=== PATIENT | male | born 1950 | race Caucasian/White ===

== ENCOUNTER 2016-08-21 05:28 | Day surgery (SDC) | payer BC, MEDICARE ==
--- NOTE | ~2016-08-21 | EGD ---
EGD REPORT [facility] [address] [address] NAME: REYES BYRD : [birth year] [place]US [place] [facility] [place] [id number] AGE: 65 ADM/REG DATE : 08/21/16 MR#: [id number] REPORT SERV DATE: 08/21/16 DICTATED BY: EFFIE MCFARLAND DATE: 08/21/16 REPORT STATUS : Draft [facility]ANSCRIBED [facility]: [facility] DATE: 08/21/16 Endoscopy Center Patient Name: Reyes Byrd Date of : 1950 Attending MD: EFFIE MCFARLAND MD Procedure Date No Time: 08/21/2016 Procedure: Colonoscopy Indications: Surveillance: History of piecemeal removal adenoma on last colonoscopy (< 1 yr) Referring MD: HIRA RILEY Medicines: See the Anesthesia note for documentation of the administered medications Complications: No immediate complications. Procedure: Pre-Anesthesia Assessment: - ASA Grade Assessment: III - A patient with severe systemic disease. After I obtained informed consent, the scope was passed under direct vision. Throughout the procedure, the patient's blood pressure, pulse, and oxygen saturations were monitored continuously. The [id number] was introduced through the anus and advanced to the cecum, identified by appendiceal orifice and ileocecal valve. The colonoscopy was performed without difficulty. The patient tolerated the procedure well. The quality of the bowel preparation was adequate. Findings: The perianal and digital rectal examinations were normal. Internal hemorrhoids were found during retroflexion and were small. Diverticula were found in the sigmoid colon. A sessile polyp was found in the distal ascending colon. The polyp was 10 mm in size. The polyp was removed with a hot snare. Resection and retrieval were complete. Two sessile polyps were found in the ascending colon. The polyps were small in size. These polyps were removed with a cold biopsy forceps. Resection and retrieval were complete. A sessile polyp was found in the proximal transverse colon. The polyp was 10 mm in size. The polyp was removed with a hot snare. Resection and retrieval were complete. (at site of spot) Impression: - Internal hemorrhoids. - Diverticulosis in the sigmoid colon. - One 10 mm polyp in the distal ascending colon. Resected and retrieved. - Two small polyps in the ascending colon. Resected and EGD REPORT [address] [address] NAME: REYES BYRD : [birth year] STATUS : REG [facility]#: [id number] AGE: 65 ADM/REG DATE : 08/21/16 MR#: [id number] REPORT SERV DATE: 08/21/16 DICTATED BY: EFFIE MCFARLAND DATE: 08/21/16 REPORT STATUS : Draft TRANSCRIBED BY: [employer] DATE: 08/21/16 retrieved. - One 10 mm polyp in the proximal transverse colon. Resected and retrieved. Recommendation: - Patient has a contact number available for emergencies. The signs and symptoms of potential delayed complications were discussed with the patient. Return to normal activities tomorrow. Written discharge instructions were provided to the patient. - Regular diet. - Continue present medications. - Repeat colonoscopy in 1 year for surveillance. - FOR YOUR BIOPSY RESULTS: Please go to [email or web address] and register to receive your results via the portal. Your biopsy results will be posted there in about 7 to 10 days. IF you do not see result in 10 days, call office. Procedure Code(s): --- Professional --- 94511, Colonoscopy, flexible, proximal to splenic flexure; with removal of tumor(s), polyp(s), or other lesion(s) by snare technique 67377, 59, Colonoscopy, flexible, proximal to splenic flexure; with biopsy, single or multiple Diagnosis Code(s): --- Professional --- K64.8, Other hemorrhoids K57.30, Diverticulosis of large intestine without perforation or abscess without bleeding D12.3, Benign neoplasm of transverse colon D12.2, Benign neoplasm of ascending colon Z86.010, Personal history of colonic polyps CPT copyright 2013 [employer]. All rights reserved. The codes documented in this report are preliminary and upon psychiatric lpn review may be revised to meet current compliance requirements. Effie Mcfarland MD EFFIE MCFARLAND MD 08/21/2016 7:42 AM This report has been signed electronically. Number of Addenda: 0 Note Initiated On: 08/21/2016 7:04 AM EGD REPORT [facility] [address] [address] NAME: REYES BYRD : [birth year] [place] [facility] [place]#: [id number] AGE: 65 ADM/REG DATE : 08/21/16 MR#: [id number] REPORT SERV DATE: 08/21/16 DICTATED BY: EFFIE MCFARLAND DATE: 08/21/16 REPORT STATUS : Draft TRANSCRIBED BY: [employer] DATE: 08/21/16 Scope Withdrawal Time 0 hours 10 minutes 53 seconds [address] [id number]
--- NOTE | ~2016-08-21 | EGD ---
EGD REPORT [facility] [address] [address] NAME: REYES BYRD : [birth year] STATUS : REG [facility] [place] PAT#: [id number] AGE: 65 ADM/REG DATE : 08/21/16 MR#: [id number] REPORT SERV DATE: 08/21/16 DICTATED BY: EFFIE MCFARLAND DATE: 08/21/16 REPORT STATUS : Draft TRANSCRIBED BY: [employer] DATE: 08/21/16 Endoscopy Center Patient Name: Reyes Byrd Date of : 1950 Attending MD: EFFIE MCFARLAND MD Procedure Date No Time: 08/21/2016 Procedure: Upper GI endoscopy Indications: Follow-up of esophageal ulcer Referring MD: HIRA RILEY Medicines: See the Anesthesia note for documentation of the administered medications Complications: No immediate complications. Procedure: Pre-Anesthesia Assessment: - ASA Grade Assessment: III - A patient with severe systemic disease. After obtaining informed consent, the endoscope was passed under direct vision. Throughout the procedure, the patient's blood pressure, pulse, and oxygen saturations were monitored continuously. The GIF [id number] was introduced through the mouth, and advanced to the second part of duodenum. The upper GI endoscopy was accomplished without difficulty. The patient tolerated the procedure well. Findings: The examined duodenum was normal. Multiple small sessile polyps were found in the gastric body. Biopsies were taken with a cold forceps for histology. Multiple small sessile polyps were found in the gastric fundus (on retroflexion). Biopsies were taken with a cold forceps for histology. A small hiatus hernia was present. There were esophageal mucosal changes consistent with short-segment Houston's esophagus present in the lower third of the esophagus. The maximum longitudinal extent of these mucosal changes was 1 cm in length. Biopsies were taken with a cold forceps for histology. Impression: - Normal examined duodenum. - Multiple gastric polyps. Biopsied. - Multiple gastric polyps. Biopsied. - Hiatus hernia. - Esophageal mucosal changes consistent with short-segment [place]'s esophagus. Biopsied. Recommendation: - Patient has a contact number available for emergencies. The signs and symptoms of potential delayed EGD REPORT [address] [address] NAME: REYES BYRD : [birth year] STATUS : REG [facility] [place] PAT#: [id number] AGE: 65 ADM/REG DATE : 08/21/16 MR#: [id number] REPORT SERV DATE: 08/21/16 DICTATED BY: EFFIE MCFARLAND DATE: 08/21/16 REPORT STATUS : Draft TRANSCRIBED BY: [facility] DATE: 08/21/16 complications were discussed with the patient. Return to normal activities tomorrow. Written discharge instructions were provided to the patient. - Regular diet. - Continue present medications. - FOR YOUR BIOPSY RESULTS: Please go to [email or web address] and register to receive your results via the portal. Your biopsy results will be posted there in about 7 to 10 days. IF you do not see result in 10 days, call office. Procedure Code(s): --- Professional --- 40493, Esophagogastroduodenoscopy, flexible, transoral; with biopsy, single or multiple Diagnosis Code(s): --- Professional --- K22.9, Disease of esophagus, unspecified K31.7, Polyp of stomach and duodenum K44.9, Diaphragmatic hernia without obstruction or gangrene K22.10, Ulcer of esophagus without bleeding CPT copyright 2013 [employer]. All rights reserved. The codes documented in this report are preliminary and upon wind turbine machinist review may be revised to meet current compliance requirements. Effie Mcfarland MD EFFIE MCFARLAND MD 08/21/2016 7:19 AM This report has been signed electronically. Number of Addenda: 0 Note Initiated On: 08/21/2016 7:02 AM Scope Withdrawal Time 0 hours 0 minutes 0 seconds [id number] [id number]
[~2016-08-21 05:28] MED LIST: ALKA SELZER; ASAB PO; COD LIVER; COZAAR100 MG PO; EFFEXOR XR150 MG PO; FISH-EPA1000 MG PO; HYZAAR1 TAB PO; KRILLOIL PO; LEVOTHYROXIN50 MCG PO; LIPITOR10 PO; LOFIBRA54 MG PO; MAX25 PO; NEUR300 PO; NITROSTAT0.4 MG SL; OXYCON10 PO; PERCOCET1 TA4 PO; PRILOSEC40 MG PO; PROTONIX PO; RANITIDINE300 MG PO; REQUIP1 PO; REQUIP2 PO; TYLENOL ARTH650 MG PO; VIACTIV; VITAMIN D2000 UNIT PO; VOLTAREN1 % TOP; ZANTAC 150 PO; [UNRECOGNIZED DRUG - OTHER]; [UNRECOGNIZED DRUG - OTHER] PO; [UNRECOGNIZED DRUG - OTHER] PO
== END 2016-08-21 23:59 | disposition home or self-care (01) ==
LOC: DMU 05:28
PROVIDERS: Internal Medicine Gastroenterology
PROC: 0DB38ZX Excision of Lower Esophagus, Via Natural or Artificial Opening Endoscopic, Diagnostic (ICD-10-PCS; 2016-08-21)
PROC: 0DB78ZX Excision of Stomach, Pylorus, Via Natural or Artificial Opening Endoscopic, Diagnostic (ICD-10-PCS; 2016-08-21)
PROC: 0DBK8ZX Excision of Ascending Colon, Via Natural or Artificial Opening Endoscopic, Diagnostic (ICD-10-PCS; principal; 2016-08-21 07:30)
PROC: 0DBE8ZX Excision of Large Intestine, Via Natural or Artificial Opening Endoscopic, Diagnostic (ICD-10-PCS; 2016-08-21 07:30)
PROC: 0DBL8ZX Excision of Transverse Colon, Via Natural or Artificial Opening Endoscopic, Diagnostic (ICD-10-PCS; 2016-08-21 07:30)
PROC: 0DB68ZX Excision of Stomach, Via Natural or Artificial Opening Endoscopic, Diagnostic (ICD-10-PCS; 2016-08-21 07:30)
DX: D12.3 Benign neoplasm of transverse colon (principal); D12.2 Benign neoplasm of ascending colon; K64.8 Other hemorrhoids; K57.30 Diverticulosis of large intestine without perforation or abscess without bleeding; K22.8 Other specified diseases of esophagus; K31.7 Polyp of stomach and duodenum; K44.9 Diaphragmatic hernia without obstruction or gangrene; E78.00 Pure hypercholesterolemia, unspecified; E03.9 Hypothyroidism, unspecified; I10 Essential (primary) hypertension; G47.33 Obstructive sleep apnea (adult) (pediatric); M19.90 Unspecified osteoarthritis, unspecified site; F41.9 Anxiety disorder, unspecified; M10.9 Gout, unspecified; D64.9 Anemia, unspecified; F32.9 Major depressive disorder, single episode, unspecified; Z86.010 Personal history of colon polyps; Z88.8 Allergy status to other drugs, medicaments and biological substances; Z90.49 Acquired absence of other specified parts of digestive tract; Z98.890 Other specified postprocedural states
CPT/HCPCS: 88305; J2405